=== PATIENT | female | born 1965 | race Caucasian/White ===

== ENCOUNTER 2017-09-04 13:44 | Emergency (ER) | payer MEDICARE ==
[~2017-09-04] VITALS: Ht 160 cm; Wt 72.4 kg
[~2017-09-04 13:44] MED LIST: ADVAIR DISK1 IN; ARAVA20 MG OR; AZITHROMYCIN250 MG OR; BACLOFEN10 MG OR; BENADRYL 50MG C50 MG OR; CELEBREX200 MG OR; CLARITIN10 M1 OR; FERR SULFATE325 MG OR; FLONASE0.05 %; HALCION0.25 MG OR; HOME OXYGEN; IMITREX50 MG OR; IRON PILL; KLOR-CON M2020 MEQ OR; LASIX20 MG OR; LASIX40 MG OR; MEDDOSEPAK OR; NEURONTIN800 MG OR; NITRO-DUR0.4 MG/HR SL; PAXIL CR37.5 MG OR; PERCOCET 5/325M1 TAB OR; PERCOCET1 TA1 OR; PLAQUENIL200 MG OR; POTASSIUM; PREDNISONE20 MG OR; PREDNISONE5 MG OR; PRILOSEC20 MG OR; PROMETHAZINE25 MG OR; PROTONIX40 M2 OR; REMERON30 MG OR; ROBITUSSIN AC10 ML PO; SOMA350 MG OR; TAM75CAP PO; VENTOLIN HF1 IN; VERAPAMIL120 M2 OR; VERAPAMIL40 MG OR; WELLBUTRIN200 MG OR; XANAX1 MG OR; ZOFRAN4 MG OR; ZPAK OR; [UNRECOGNIZED DRUG - OTHER]; [UNRECOGNIZED DRUG - OTHER] RE
[2017-09-04 15:12] LABS: HEMATOCRIT 40.7 % (37.0-47.0); IMMATURE GRANULOCYTES 0.2 % (0.0-1.0); MEAN CELL VOLUME 89.6 fL CALC (80.0-100.0); MEAN CORPUSCULAR HGB 30.8 pG CALC (26.0-32.0); MEAN CORPUSCULAR HGB CONC 34.4 g/L CALC (32.0-36.0); NEUT# 2.76 thou/uL (2.00-7.15); RED BLOOD COUNT 4.54 mill/uL (4.20-5.60); RED CELL DISTRI WIDTH 12.4 % (11.5-15.5)
[2017-09-04 15:13] LABS: URINE BILIRUBIN - DIPSTICK NEGATIVE (NEGATIVE); URINE BLOOD DIPSTICK NEGATIVE (NEGATIVE); URINE COLOR YELLOW; URINE GLUCOSE - DIPSTICK NEGATIVE (NEGATIVE); URINE KETONE NEGATIVE (NEGATIVE); URINE LEUK ESTERASE NEGATIVE (NEGATIVE); URINE NITRITE - DIPSTICK NEGATIVE (Negative); URINE PROTEIN - DIPSTICK NEGATIVE (NEG-TRACE); URINE SPECIFIC GRAVITY <=1.005; URINE UROBILINOGEN - DIPSTICK 0.2 E.U./dL (0.2)
[2017-09-04 15:21] LABS: URINE CLARITY CLEAR
[2017-09-04 15:32] LABS: ALBUMIN 4.1 g/dL (3.2-5.0); ALKALINE PHOSPHATASE 52 u/l (38-126); ANION GAP 14 (6-22 (CALC)); BILIRUBIN, TOTAL 0.5 mg/dL (0.0-1.4); BUN 13 mg/dL (7-17); BUN/CREATININE RATIO 19 (12-20 (CALC)); CALCIUM 9.5 mg/dL (8.4-10.2); CARBON DIOXIDE 22 mmol/l (22-30); CHLORIDE 107 mmol/l (95-108); CREATININE 0.7 mg/dL (0.5-1.0); GFR > 60 ML/MIN (>=60 (CALC)); GFR FOR AFR.AMER. > 60 ML/MIN (>=60 (CALC)); GLUCOSE 116 mg/dL (65-105); POTASSIUM 4.4 mmol/l (3.5-5.1); SGOT/AST 37 u/l (14-36); SGPT/ALT 31 u/l (9-52); SODIUM 139 mmol/l (137-146); TOTAL PROTEIN 6.9 g/dL (6.3-8.2)
[2017-09-04] MEDS ORDERED: AMOXICILLIN500 MG PO (15:42)
[2017-09-04 15:43] LABS: MYOGLOBIN 29 ng/mL (0 - 62)
[2017-09-04 16:39] VITALS: BP 135/87
[2017-09-04] MEDS ORDERED: NAPROSYN500 MG PO (16:50)
[2017-09-04] MEDS ORDERED: LORTAB 1010 MG PO (16:53)
[2017-09-05] MEDS ORDERED: MEDDOSEPAK PO (12:24)
[2017-09-05] MEDS ORDERED: CLARITIN10 M2 PO (12:24)
== END 2017-09-04 16:56 | disposition home or self-care (01) ==
LOC: ED 13:44
PROVIDERS: Emergency Medicine
DX: J02.9 Acute pharyngitis, unspecified (principal); R42 Dizziness and giddiness; R22.32 Localized swelling, mass and lump, left upper limb; I10 Essential (primary) hypertension; M06.9 Rheumatoid arthritis, unspecified; R00.1 Bradycardia, unspecified

== ENCOUNTER 2017-12-21 16:59 | Emergency (ER) | payer MEDICARE ==
[~2017-12-21] VITALS: Ht 160 cm; Wt 72.0 kg
[~2017-12-21 16:59] MED LIST changes: +AMOXICILLIN500 MG PO; +CLARITIN10 M2 PO; +LORTAB 1010 MG PO; +MEDDOSEPAK PO; +NAPROSYN500 MG PO
[2017-12-21] MEDS ORDERED: ASPIRIN 81 LOW81 MG PO (18:33)
[2017-12-21 18:49] LABS: HEMATOCRIT 39.6 % (37.0-47.0); HEMOGLOBIN 13.5 g/dl (12.0-16.0); IMMATURE GRANULOCYTES 0.3 % (0.0-1.0); MEAN CELL VOLUME 88.6 fL CALC (80.0-100.0); MEAN CORPUSCULAR HGB 30.2 pG CALC (26.0-32.0); MEAN CORPUSCULAR HGB CONC 34.1 g/L CALC (32.0-36.0); NEUT# 4.53 thou/uL (2.00-7.15); RED BLOOD COUNT 4.47 mill/uL (4.20-5.60); RED CELL DISTRI WIDTH 12.4 % (11.5-15.5)
[2017-12-21 19:01] LABS: ALKALINE PHOSPHATASE 62 u/l (38-126); ANION GAP 13 (6-22 (CALC)); BILIRUBIN, TOTAL 0.4 mg/dL (0.0-1.4); BUN 11 mg/dL (7-17); BUN/CREATININE RATIO 15 (12-20 (CALC)); CARBON DIOXIDE 25 mmol/l (22-30); CHLORIDE 105 mmol/l (95-108); CREATININE 0.7 mg/dL (0.5-1.0); GFR > 60 ML/MIN (>=60 (CALC)); GFR FOR AFR.AMER. > 60 ML/MIN (>=60 (CALC)); POTASSIUM 3.9 mmol/l (3.5-5.1); SGOT/AST 47 u/l (14-36); SGPT/ALT 26 u/l (9-52); SODIUM 139 mmol/l (137-146); TOTAL PROTEIN 7.3 g/dL (6.3-8.2)
[2017-12-21 19:02] LABS: ALBUMIN 4.3 g/dL (3.2-5.0)
[2017-12-21 21:28] LABS: URINE BILIRUBIN - DIPSTICK NEGATIVE (NEGATIVE); URINE BLOOD DIPSTICK NEGATIVE (NEGATIVE); URINE COLOR YELLOW; URINE GLUCOSE - DIPSTICK NEGATIVE (NEGATIVE); URINE KETONE NEGATIVE (NEGATIVE); URINE LEUK ESTERASE NEGATIVE (NEGATIVE); URINE NITRITE - DIPSTICK NEGATIVE (Negative); URINE PROTEIN - DIPSTICK NEGATIVE (NEG-TRACE); URINE SPECIFIC GRAVITY <=1.005; URINE UROBILINOGEN - DIPSTICK 0.2 E.U./dL (0.2)
[2017-12-21 21:30] LABS: URINE CLARITY CLEAR
[2017-12-21] MEDS ORDERED: MEDDOSEPAK PO (22:12)
[2017-12-21] MEDS ORDERED: CLEOCIN300 MG PO (22:12)
[2017-12-21] MEDS ORDERED: LORTAB 1010 MG PO ×2 (22:21→22:22)
[2017-12-21 22:35] VITALS: BP 140/70
== END 2017-12-21 22:35 | disposition home or self-care (01) ==
LOC: ED 16:59
PROVIDERS: Emergency Medicine
DX: K04.7 Periapical abscess without sinus (principal); G51.0 Bell's palsy; R22.0 Localized swelling, mass and lump, head; R07.89 Other chest pain

== ENCOUNTER 2019-12-03 | Emergency (ER) | payer MEDICARE ==
[~2019-12-03] MED LIST changes: +ASPIRIN 81 LOW81 MG PO; +CLEOCIN300 MG PO
[2019-12-03] MEDS ORDERED: TURMERIC CURCU500 MG PO (14:31)
[2019-12-03] MEDS ORDERED: [UNRECOGNIZED DRUG - MIXTURE] PO (14:32)
[2019-12-03] MEDS ORDERED: OMEGA 31000 MG PO (14:33)
[2019-12-03] MEDS ORDERED: GLUCOSAMINE & C1 CAP PO (14:33)
[2019-12-03 14:49] LABS: URINE BILIRUBIN - DIPSTICK NEGATIVE (NEGATIVE); URINE BLOOD DIPSTICK NEGATIVE (NEGATIVE); URINE COLOR YELLOW; URINE GLUCOSE - DIPSTICK NEGATIVE (NEGATIVE); URINE KETONE NEGATIVE (NEGATIVE); URINE LEUK ESTERASE NEGATIVE (NEGATIVE); URINE NITRITE - DIPSTICK NEGATIVE (Negative); URINE PH 5.5 (4.5-8.0); URINE PROTEIN - DIPSTICK NEGATIVE (NEG-TRACE); URINE SPECIFIC GRAVITY <=1.005; URINE UROBILINOGEN - DIPSTICK 0.2 E.U./dL (0.2)
[2019-12-03] MEDS ORDERED: CAYENNE PEPPER PO (16:30)
[2019-12-03 17:35] LABS: HEMATOCRIT 41.7 % (37.0-47.0); HEMOGLOBIN 13.7 g/dl (12.0-16.0); IMMATURE GRANULOCYTES 0.2 % (0.0-5.0); MEAN CELL VOLUME 89.7 fL CALC (80.0-100.0); MEAN CORPUSCULAR HGB 29.5 pG CALC (26.0-32.0); MEAN CORPUSCULAR HGB CONC 32.9 g/L CALC (32.0-36.0); NEUT# 2.62 thou/uL (2.00-7.15); RED BLOOD COUNT 4.65 mill/uL (4.20-5.60); RED CELL DISTRI WIDTH 12.6 % (11.5-15.5)
[2019-12-03 17:53] LABS: ALBUMIN 4.6 g/dL (3.2-5.0); ALKALINE PHOSPHATASE 49 u/l (38-126); ANION GAP 13 (6-22 (CALC)); BILIRUBIN, TOTAL 0.5 mg/dL (0.0-1.4); BUN 8 mg/dL (7-17); BUN/CREATININE RATIO 14 (12-20 (CALC)); C-REACTIVE PROTEIN < 0.5 mg/dL (0-0.9); CARBON DIOXIDE 25 mmol/l (22-30); CHLORIDE 103 mmol/l (95-108); CREATININE 0.6 mg/dL (0.5-1.0); GFR > 60 ML/MIN (>=60 (CALC)); GFR FOR AFR.AMER. > 60 ML/MIN (>=60 (CALC)); POTASSIUM 4.2 mmol/l (3.5-5.1); SGOT/AST 40 u/l (14-36); SODIUM 137 mmol/l (137-146); TOTAL PROTEIN 7.9 g/dL (6.3-8.2)
[2019-12-03] MEDS ORDERED: MEDDOSEPAK PO (18:57)
== END 2019-12-03 19:15 | disposition home or self-care (01) ==
PROVIDERS: Emergency Medicine
DX: M06.9 Rheumatoid arthritis, unspecified (principal); M10.9 Gout, unspecified

== ENCOUNTER 2022-12-09 17:59 | Emergency (ER) | payer MEDICARE, MEDICAID ==
[~2022-12-09] VITALS: Ht 160 cm; Wt 80.0 kg
[~2022-12-09 17:59] MED LIST changes: +CAYENNE PEPPER PO; +GLUCOSAMINE & C1 CAP PO; +OMEGA 31000 MG PO; +TURMERIC CURCU500 MG PO; +[UNRECOGNIZED DRUG - MIXTURE] PO
[2022-12-09 18:48] VITALS: BP 151/85
[2022-12-09 19:01] VITALS: BP 141/75
[2022-12-09 19:33] LABS: BASO% 0.7 % (0-3); EOS% 2.1 % (0-8); HEMATOCRIT 43.6 % (37.0-47.0); HEMOGLOBIN 14.2 g/dl (12.0-16.0); IMMATURE GRANULOCYTES 0.4 % (0.0-5.0); LYMPH% 47.2 % (15-41); MEAN CELL VOLUME 90.6 fL CALC (80.0-100.0); MEAN CORPUSCULAR HGB 29.5 pG CALC (26.0-32.0); MEAN CORPUSCULAR HGB CONC 32.6 g/dL CAL (32.0-36.0); MONO% 5.5 % (2-13); NEUT# 3.34 thou/uL (2.00-7.15); NEUT% 44.1 % (42-76); RED BLOOD COUNT 4.81 mill/uL (4.20-5.60); RED CELL DISTRI WIDTH 12.6 % (11.5-15.5)
[2022-12-09 19:51] LABS: ALBUMIN 4.8 g/dL (3.2-5.0); ALKALINE PHOSPHATASE 57 u/l (38-126); ANION GAP 13 (6-22 (CALC)); BILIRUBIN, TOTAL 0.1 mg/dL (0.02-1.3); BUN 16 mg/dL (7-17); BUN/CREATININE RATIO 19 (12-20 (CALC)); CARBON DIOXIDE 28 mmol/l (22-30); CHLORIDE 102 mmol/l (95-108); CREATININE 0.9 mg/dL (0.5-1.0); GFR FOR AFR.AMER. > 60 ML/MIN (>=60 (CALC)); GFR OTHER RACES > 60 ML/MIN (>=60 (CALC)); MAGNESIUM 2.1 mg/dL (1.6-2.3); POTASSIUM 3.7 mmol/l (3.5-5.1); SGOT/AST 52 u/l (14-36); SODIUM 139 mmol/l (137-146); TOTAL PROTEIN 8.8 g/dL (6.3-8.2)
[2022-12-09 19:53] LABS: ACT PARTIAL THROMBO TIME 23.2 SECONDS (20.0-32.5); INTERNATIONAL NORMALIZED RATIO 0.9 RATIO (0.7-1.3); PROTHROMBIN TIME 9.4 SECONDS (9.0-12.5)
[2022-12-09 20:00] LABS: D-DIMER 0.33 mg/L (0.19-0.60)
[2022-12-09 20:22] LABS: TSH, 3RD GENERATION 1.45 uIU/mL (0.47 - 4.68)
[2022-12-09 21:03] VITALS: BP 132/61
[2022-12-09 21:07] VITALS: BP 122/63
[2022-12-09] MEDS ORDERED: VENTOLIN HFA IN (21:18)
[2022-12-09] MEDS ORDERED: MEDDOSEPAK PO (21:18)
[2022-12-09 21:36] VITALS: BP 122/63
== END 2022-12-09 21:51 | disposition home or self-care (01) ==
LOC: ED 17:59
PROVIDERS: Family Medicine
DX: J45.901 Unspecified asthma with (acute) exacerbation (principal); M06.9 Rheumatoid arthritis, unspecified; M10.9 Gout, unspecified; Z20.822 Contact with and (suspected) exposure to COVID-19

== ENCOUNTER 2024-06-18 07:26 | Day surgery (SDC) | payer MEDICARE, MEDICAID ==
[~2024-06-18] VITALS: Ht 162.6 cm; Wt 69.9 kg
[~2024-06-18 07:26] MED LIST changes: +ALBUTEROL108 MCG/AC IN; +ALPHA LIPOIC50 M1 PO; +ARAVA20 MG PO; +BAYER ASPIRIN325 M1 PO; +BUPROPION HCL150 MG PO; +CLONAZEPAM0.5 M1 PO; +COZAAR25 MG PO; +CYMBALTA30 MG PO; +DICYCLOMINE HYD10 MG PO; +EPINEPHRIN0.3 MG/0.3 IM; +GABAPENTIN300 M2 PO; +GENERLAC10 GM/15 M PO; +HYDROXYCHLOR200 MG PO; +KLONOPIN0.5 MG PO; +KLOR-CON M2020 MEQ PO; +LASIX 40 MG TAB40 MG PO; +LINZESS145 MCG PO; +LINZESS290 MCG PO; +LOFENA25 MG PO; +LORTAB 5/3255 MG PO; +MAG-OXIDE200 MG PO; +MELOXICAM15 MG PO; +METHOCARBAMOL500 MG PO; +NITROSTAT0.4 MG SL; +OMEPRAZOLE DR40 MG PO; +ONDANSETRON4 MG PO; +PREDNISONE10 MG PO; +PROVENTIL0.083 % IN; +SPIRIVA RE2.5 MCG/AC; +SPIRIVA RE2.5 MCG/AC IN; +TRAZODONE100 MG PO; +TRAZODONE50 MG PO; +TRELEGY ELLIPTA1 AER IN; +VENTOLIN HFA IN; +VENTOLIN HFA108 MCG IN; +ZOFRAN4 MG/TAB PO; +[UNRECOGNIZED DRUG - OTHER]
[2024-06-18] MEDS ORDERED: FAMOTIDINE 10MG/ML 2ML SDV IV ONE (07:31)
[2024-06-18] MEDS ORDERED: ONDANSETRON HCl 4 MG/2 ML SDV ONE (07:31)
[2024-06-18] MEDS ORDERED: LACTATED RINGER'S 1,000 ML IV ONE (07:31)
[2024-06-18 08:57] VITALS: BP 137/78
[2024-06-18] MEDS ORDERED: LIDOCAINE HCL 2% 2ML SDV IV ONE (14:28)
[2024-06-18] MEDS ORDERED: PROPOFOL 200 MG/20 ML VIAL IV ONE (14:28)
[2024-06-18] MEDS ORDERED: GLYCOPYRROLATE 0.2 MG/ML IV ONE (14:28)
== END 2024-06-18 09:15 | disposition home or self-care (01) ==
LOC: ENDO 07:26
PROVIDERS: ATTEND Internal Medicine Gastroenterology
PROC: 0DB38ZX Excision of Lower Esophagus, Via Natural or Artificial Opening Endoscopic, Diagnostic (ICD-10-PCS; principal; 2024-06-18)
PROC: 0DB78ZX Excision of Stomach, Pylorus, Via Natural or Artificial Opening Endoscopic, Diagnostic (ICD-10-PCS; 2024-06-18)
DX: K21.00 Gastro-esophageal reflux disease with esophagitis, without bleeding (principal); K29.70 Gastritis, unspecified, without bleeding; K44.9 Diaphragmatic hernia without obstruction or gangrene; K31.89 Other diseases of stomach and duodenum; I10 Essential (primary) hypertension; J44.9 Chronic obstructive pulmonary disease, unspecified; K58.1 Irritable bowel syndrome with constipation; F32.A Depression, unspecified; F41.9 Anxiety disorder, unspecified

== ENCOUNTER 2024-07-12 09:19 | Day surgery (SDC) | payer MEDICARE, MEDICAID ==
[~2024-07-12] VITALS: Ht 162.6 cm; Wt 76.2 kg
[2024-07-12] MEDS ORDERED: MIDAZOLAM HCL 2 MG/2 ML VIAL ONE (09:23)
[2024-07-12] MEDS ORDERED: ONDANSETRON HCl 4 MG/2 ML SDV ONE (09:23)
[2024-07-12] MEDS ORDERED: FAMOTIDINE 10MG/ML 2ML SDV IV ONE (09:23)
[2024-07-12] MEDS ORDERED: LACTATED RINGER'S 1,000 ML IV ONE (09:24)
[2024-07-12 11:53] VITALS: BP 124/80
[2024-07-12] MEDS ORDERED: GLYCOPYRROLATE 0.2 MG/ML IV ONE (13:11)
[2024-07-12] MEDS ORDERED: PROPOFOL 200 MG/20 ML VIAL IV ONE (13:11)
[2024-07-12] MEDS ORDERED: LIDOCAINE HCL 2% 2ML SDV IV ONE (13:11)
== END 2024-07-12 11:59 | disposition home or self-care (01) ==
LOC: ENDO 09:19 → ORM 11:00 → ENDO 11:59 → ORM 12:30 → ENDO 12:30 → ORM 13:00
PROVIDERS: ATTEND Internal Medicine Gastroenterology
PROC: 0DJD8ZZ Inspection of Lower Intestinal Tract, Via Natural or Artificial Opening Endoscopic (ICD-10-PCS; principal; 2024-07-12)
DX: Z12.11 Encounter for screening for malignant neoplasm of colon (principal); K64.8 Other hemorrhoids; K58.1 Irritable bowel syndrome with constipation; K21.9 Gastro-esophageal reflux disease without esophagitis; K44.9 Diaphragmatic hernia without obstruction or gangrene; I10 Essential (primary) hypertension; G62.9 Polyneuropathy, unspecified; J45.909 Unspecified asthma, uncomplicated; Z79.899 Other long term (current) drug therapy

== ENCOUNTER 2024-08-02 18:07 | Emergency (ER) | payer MEDICARE, MEDICAID ==
[~2024-08-02] VITALS: Ht 162.6 cm; Wt 79.8 kg
[2024-08-02] MEDS ORDERED: DEXAMETHASONE SOD. PHOSPHATE 10 MG/ML VIAL IM ONE (19:20)
[2024-08-02] MEDS ORDERED: MEDDOSEPAK PO (19:41)
[2024-08-02 19:48] VITALS: BP 139/78
== END 2024-08-02 20:08 | disposition home or self-care (01) ==
LOC: ED 18:07
DX: S80.12XA Contusion of left lower leg, initial encounter (principal); S80.11XA Contusion of right lower leg, initial encounter; S50.811A Abrasion of right forearm, initial encounter; M06.9 Rheumatoid arthritis, unspecified; M10.9 Gout, unspecified; F32.A Depression, unspecified; F41.9 Anxiety disorder, unspecified; G62.9 Polyneuropathy, unspecified; G35 Multiple sclerosis; W13.3XXA Fall through floor, initial encounter; Y92.009 Unspecified place in unspecified non-institutional (private) residence as the place of occurrence of the external cause

== ENCOUNTER 2024-10-18 11:00 | Emergency (ER) | payer MEDICARE, MEDICAID ==
[~2024-10-18] VITALS: Ht 162.6 cm; Wt 81.2 kg
[2024-10-18] VITALS (10 sets, daily range): BP systolic 96–141; BP diastolic 45–77
[2024-10-18 11:50] LABS: BASO% 0.4 % (0-3); EOS% 0.2 % (0-8); HEMATOCRIT 37.8 % (37.0-47.0); HEMOGLOBIN 12.5 g/dl (12.0-16.0); IMMATURE GRANULOCYTES 0.2 % (0.0-5.0); MEAN CELL VOLUME 91.3 fL CALC (80.0-100.0); MEAN CORPUSCULAR HGB 30.2 pG CALC (26.0-32.0); MEAN CORPUSCULAR HGB CONC 33.1 g/dL CAL (32.0-36.0); MONO% 11.9 % (2-13); NEUT# 4.11 thou/uL (2.00-7.15); NEUT% 80.3 % (42-76); RED BLOOD COUNT 4.14 mill/uL (4.20-5.60); RED CELL DISTRI WIDTH 12.5 % (11.5-15.5)
[2024-10-18 12:05] LABS: ALBUMIN 4.4 g/dL (3.2-5.0); BILIRUBIN, TOTAL 0.3 mg/dL (0.02-1.3); CREATININE 0.7 mg/dL (0.5-1.0); POTASSIUM 3.9 mmol/l (3.5-5.1); TOTAL PROTEIN 7.2 g/dL (6.3-8.2)
[2024-10-18] MEDS ORDERED: DiphenhydrAMINE HCL 50 MG/ML SDV IV ONE (12:30)
[2024-10-18] MEDS ORDERED: methylPREDNISolone SODIUM SUCC 125 MG/2 ML SDV IV ONE (12:30)
[2024-10-18] MEDS ORDERED: METOCLOPRAMIDE HCL 10 MG/2 ML SDV IV ONE (12:30)
[2024-10-18] MEDS ORDERED: SODIUM CHLORIDE 0.9% 1,000 ML IV ONE (12:30)
[2024-10-18] MEDS ORDERED: ORPHENADRINE CITRATE 30 MG/ML AMP IV ONE (12:30)
[2024-10-18] MEDS ORDERED: OSELTAMIVIR PHOSPHATE 75 MG/TAB CAP PO ONE (12:30)
[2024-10-18] MEDS ORDERED: IPRATROPIUM-Albuterol 0.5MG-2.5MG/3 ML NEB ONE (12:30)
[2024-10-18 12:50] LABS: URINE BILIRUBIN - DIPSTICK Negative (NEGATIVE); URINE BLOOD DIPSTICK Negative (NEGATIVE); URINE GLUCOSE - DIPSTICK Negative (NEGATIVE); URINE KETONE Negative (NEGATIVE); URINE LEUK ESTERASE Negative (NEGATIVE); URINE NITRITE - DIPSTICK Negative (Negative); URINE PH 5.5 (4.5-8.0); URINE PROTEIN - DIPSTICK Negative (NEG-TRACE); URINE SPECIFIC GRAVITY <=1.005; URINE UROBILINOGEN - DIPSTICK 0.2 E.U./dL (0.2)
[2024-10-18 12:54] LABS: URINE COLOR Yellow
[2024-10-18] MEDS ORDERED: TAM75CAP PO (15:30)
[2024-10-18] MEDS ORDERED: AZELASTINE HCL0.1 % (15:30)
== END 2024-10-18 15:55 | disposition home or self-care (01) ==
LOC: ED 11:00
PROVIDERS: Family Medicine
DX: J10.1 Influenza due to other identified influenza virus with other respiratory manifestations (principal); J44.9 Chronic obstructive pulmonary disease, unspecified; M06.9 Rheumatoid arthritis, unspecified; G35 Multiple sclerosis; F32.A Depression, unspecified; F41.9 Anxiety disorder, unspecified; G62.9 Polyneuropathy, unspecified; Z20.822 Contact with and (suspected) exposure to COVID-19
CPT/HCPCS: J1200; J2360; J2765